=== PATIENT | male | born 1955 | race Caucasian/White ===

== ENCOUNTER 2021-03-26 14:22 | Inpatient (IN) | payer OTHER ==
[~2021-03-26] VITALS: Ht 182.9 cm; Wt 102.5 kg
[2021-03-26 15:07] LABS: PCO2 Arterial 29.2 mmHg (35-45); pH Blood Arterial 7.47 (7.35-7.45)
[2021-03-26 15:22] LABS: BASOPHILS ABSOLUTE AUTO 0.08 K/mm3 (0.00-0.23); BASOPHILS PERCENT AUTO 1 % (0-2); EOSINOPHILS ABSOLUTE AUTO 0.02 K/mm3 (0.00-0.68); EOSINOPHILS PERCENT AUTO 0 % (0-6); Hematocrit 44.1 % (37.0-53.0); Hemoglobin 15.5 g/dL (13.5-17.5); IMMATURE GRAN ABSOLUTE AUTO 0.61 K/mm3 (0.00-0.10); IMMATURE GRAN PERCENT AUTO 4 % (0-1); LYMPHOCYTES ABSOLUTE AUTO 0.84 K/mm3 (0.84-5.20); LYMPHOCYTES PERCENT AUTO 6 % (21-46); MONOCYTES PERCENT AUTO 6 % (4-13); Mean Corpuscular HGB 33.3 pg (26.0-34.0); Mean Corpuscular HGB Conc 35.1 g/dL (31.5-36.5); Mean Corpuscular Volume 95 fL (80-100); NEUTROPHILS ABSOLUTE AUTO 11.53 K/mm3 (1.96-9.15); NEUTROPHILS PERCENT AUTO 83 % (41-73); NRBC ABSOLUTE 0.06 K/mm3 (0.00-0.02); NRBC Auto 0.4 /100 WBC (0.0-0.2); Platelet Count 366 K/mm3 (150-400); RDW Coefficient Variation 14.1 % (11.7-14.2); RDW Standard Deviation 49.3 fL (35.1-46.3); Red Blood Cell Count 4.66 M/mm3 (4.30-5.90); White Blood Cell Count 13.98 K/mm3 (4.00-11.30)
[2021-03-26 15:39] LABS: Influenza A, PCR NEGATIVE (NEGATIVE); Influenza B, PCR NEGATIVE (NEGATIVE); Resp Syncytial Virus, PCR NEGATIVE (NEGATIVE)
[2021-03-26 15:39] LABS: Alanine Aminotransfer (ALT/SGP 35 U/L (12-78); Albumin, Blood 2.7 g/dL (3.4-5.0); Albumin/Globulin Ratio 0.7 (0.8-1.8); Alk Phos 126 U/L (50-136); Anion Gap 12 mmol/L (6-16); Aspartate Aminotrans (AST/SGOT 72 U/L (12-37); Blood Urea Nitrogen 25 mg/dL (8-24); Bun/Creatinine Ratio 26.5 (12.0-20.0); CO2, Blood 21 mmol/L (21-32); Calcium, Blood 8.7 mg/dL (8.5-10.1); Chloride, Blood 102 mmol/L (98-108); Creatinine, Blood 0.94 mg/dL (0.60-1.20); Globulin, Blood 3.8 g/dL (2.2-4.0); Glomerular Filtration Rate >60 (60-); Glucose, Blood 115 mg/dL (70-99); Potassium, Blood 4.7 mmol/L (3.5-5.5); Sodium, Blood 135 mmol/L (136-145); Total Protein, Blood 6.5 g/dL (6.4-8.2)
[2021-03-26 15:42] LABS: International Normalized Ratio 0.98; Prothrombin Time Results 10.3 Sec (9.7-11.5)
[2021-03-26 15:42] LABS: SARS-Cov-2 (COVID-19) PCR, MMC POSITIVE (NEGATIVE)
[2021-03-27 04:06] LABS: Source, Urine Catheter
[2021-03-27 04:16] LABS: Bilirubin, Urine Neg (Neg); Blood, Urine 1+ (Neg); Glucose Qualitative, Urine Neg (Neg); Ketones, Urine 3+ (Neg); Leukocyte Esterase, Urine 1+ (Neg); Nitrite, Urine Pos (Neg); Protein, Urine 2+ (Neg); Specific Gravity, Urine 1.015 (1.003-1.022); Urobilinogen, Urine NORM (Normal)
[2021-03-27 04:28] LABS: Hematocrit 45.4 % (37.0-53.0); Hemoglobin 15.8 g/dL (13.5-17.5); Mean Corpuscular HGB 33.1 pg (26.0-34.0); Mean Corpuscular HGB Conc 34.8 g/dL (31.5-36.5); Mean Corpuscular Volume 95 fL (80-100); Platelet Count 333 K/mm3 (150-400); RDW Coefficient Variation 13.9 % (11.7-14.2); RDW Standard Deviation 49.1 fL (35.1-46.3); Red Blood Cell Count 4.77 M/mm3 (4.30-5.90); White Blood Cell Count 9.78 K/mm3 (4.00-11.30)
[2021-03-27 04:31] LABS: Appearance, Urine Clear (Clear); Color, Urine Yellow (P-Yellow)
[2021-03-27 04:32] LABS: Bacteria Mod /hpf; Red Blood Cells, Urine Rare /hpf (0-2); Squamous Epithelial Cells Not Seen /hpf (Few)
[2021-03-27 04:53] LABS: Alanine Aminotransfer (ALT/SGP 34 U/L (12-78); Albumin, Blood 2.6 g/dL (3.4-5.0); Albumin/Globulin Ratio 0.7 (0.8-1.8); Alk Phos 129 U/L (50-136); Anion Gap 11 mmol/L (6-16); Aspartate Aminotrans (AST/SGOT 48 U/L (12-37); Bilirubin, Total 0.7 mg/dL (0.1-1.0); Blood Urea Nitrogen 25 mg/dL (8-24); CO2, Blood 24 mmol/L (21-32); Calcium, Blood 8.5 mg/dL (8.5-10.1); Chloride, Blood 103 mmol/L (98-108); Creatinine, Blood 0.96 mg/dL (0.60-1.20); Globulin, Blood 3.8 g/dL (2.2-4.0); Glomerular Filtration Rate >60 (60-); Glucose, Blood 143 mg/dL (70-99); Potassium, Blood 3.7 mmol/L (3.5-5.5); Sodium, Blood 138 mmol/L (136-145); Total Protein, Blood 6.4 g/dL (6.4-8.2)
[2021-03-27 05:45] LABS: BAND PERCENT MAN 10 % (0-8); BASOPHILS PERCENT MAN 0 % (0-2); EOSINOPHILS PERCENT MAN 0 % (0-6); LYMPHOCYTES ABSOLUTE MAN 0.39 K/mm3 (0.84-5.20); LYMPHOCYTES PERCENT MAN 4 % (21-46); METAMYELOCYTE ABSOLUTE MAN 0.09 K/mm3 (0.00-0.00); METAMYELOCYTE PERCENT MAN 1 % (0-0); MONOCYTES ABSOLUTE MAN 0.09 K/mm3 (0.16-1.47); MONOCYTES PERCENT MAN 1 % (4-13); MYELOCYTE ABSOLUTE MAN 0.09 K/mm3 (0.00-0.00); MYELOCYTE PERCENT MAN 1 % (0-0); NEUTROPHILS ABSOLUTE MAN 9.09 K/mm3 (1.96-9.15); SEG NEUTROPHILS PERCENT MAN 83 % (41-73); TOTAL CELLS COUNTED 100
--- NOTE | 2021-03-27 17:44 | NUR ---
SHIFT SUMMARY PT HAS BEEN RESTING IN BED. WHEN ENCOURAGED TO PRONE, PT WOULD PUT OFF STATING "IF I TAKE A NAP, I WILL DO IT THEN." PT HAS MAINTAINED SPO2 >90% ON CURRENT SETTINGS. PT DID NOT APPEAR TO BE SOB DURING ANY INTERACTION. VSS, NO C/O PAIN/DISCOMFORT. NO ACUTE CHANGES TO CURRENT CONDITION.
[2021-03-28 03:39] LABS: Hematocrit 43.5 % (37.0-53.0); Mean Corpuscular HGB 32.9 pg (26.0-34.0); Mean Corpuscular HGB Conc 34.5 g/dL (31.5-36.5); Mean Corpuscular Volume 95 fL (80-100); Mean Platelet Volume 8.6 fL (9.1-12.4); Platelet Count 417 K/mm3 (150-400); RDW Coefficient Variation 14.2 % (11.7-14.2); RDW Standard Deviation 49.5 fL (35.1-46.3); Red Blood Cell Count 4.56 M/mm3 (4.30-5.90); White Blood Cell Count 22.01 K/mm3 (4.00-11.30)
[2021-03-28 04:05] LABS: Alanine Aminotransfer (ALT/SGP 33 U/L (12-78); Albumin, Blood 2.4 g/dL (3.4-5.0); Albumin/Globulin Ratio 0.7 (0.8-1.8); Alk Phos 108 U/L (50-136); Anion Gap 8 mmol/L (6-16); Aspartate Aminotrans (AST/SGOT 32 U/L (12-37); Bilirubin, Total 0.5 mg/dL (0.1-1.0); Blood Urea Nitrogen 31 mg/dL (8-24); Bun/Creatinine Ratio 33.1 (12.0-20.0); CO2, Blood 25 mmol/L (21-32); Calcium, Blood 8.7 mg/dL (8.5-10.1); Chloride, Blood 105 mmol/L (98-108); Creatinine, Blood 0.94 mg/dL (0.60-1.20); Ferritin, Serum 986 ng/mL (26-388); Globulin, Blood 3.5 g/dL (2.2-4.0); Glomerular Filtration Rate >60 (60-); Glucose, Blood 167 mg/dL (70-99); Potassium, Blood 3.8 mmol/L (3.5-5.5); Sodium, Blood 138 mmol/L (136-145); Total Protein, Blood 5.9 g/dL (6.4-8.2)
--- NOTE | 2021-03-28 05:23 | NUR ---
SHIFT SUMMARY PT ALERT AND ORIENTED X3. HR SR FHB PAC 80'S, BP STABLE. ON 55L AIRVO 70% FIO2, MAINTAINING SATS OVER 93%. PT ENCOURAGED TO PRONE. ASLEEP ON BACK MOST OF NIGHT AND SOME ON SIDE. OCCASIONAL PRODUCTIVE COUGH. VOIDING INDEPENDENTLY W/ URINAL. X1 SBA TO BEDSIDE COMMODE. LIQUIDY STOOLS. IN BEED SLEEPING WITH CALL ALARM AT SIDE. WILL CONTINUE TO MONITOR UNTIL REPORT GIVEN
--- NOTE | 2021-03-28 18:21 | NUR ---
SHIFT SUMMARY PT HAS BEEN UP INDEPENDENTLY IN ROOM. PT WAS EDUCATED ON IMPORTANCE OF REPOSITIONING AND PRONING. PT HAS MADE NO C/O. PT IS CURRENTLY RESTING IN BED. ALL VITAL SIGNS STABLE, NO ACUTE CHANGES TO CURRENT CONDITION.
--- NOTE | 2021-03-29 05:00 | NUR ---
SHIFT SUMMARY PT ALERT AND ORIENTED. SLEEPING THROUGHOUT MOST OF NIGHT. ENCOURAGED TO PRONE BUT MOSTLY SLEEPS ON SIDE. C/O 5/10 BACK PAIN TO START SHIFT. PAIN RELIEVED PER EMAR. VOIDING INDEPENDENTLY WITH BEDSIDE URINAL. BP STABLE, HR 80'S SR FHB PAC. ON 50L AIRVO 45% FIO2 MAINTAINING SATS OVER 93%. MENTATION IMPROVED FROM PREVIOUS EVENINGS. IN BED SLEEPING WITH CALL ALARM AT SIDE.
--- NOTE | 2021-03-29 12:55 | NUR ---
PATIENT ALERT AND ORIENTED X3-4. NEURO WNL. DENIES NUMBNESS/TINGLING. PERRLA. ABLE TO MOVE ALL EXTREMITIES. UP TO BSC AND CHAIR WITH 1 PERSON ASSIST. ON AIRVO AT 50L AND 40% FIO2 SATING LOW-MID 90'S. OCCASIONAL COUGH, LUNGS SOUNDING DIMINISHED. DESATS WITH ACTIVITY. ON TELE SHOWING SINUS RHYTHM WITH HR 70-80'S. DENIES CHEST PAIN/PRESSURE. VITAL SIGNS STABLE. USING BSC AND URINAL. URINE CLEAR/CAROLINE. DENIES ABDOMINAL PAIN/NAUSEA. COMPLAINS OF BACK PAIN. RELIEVED WITH TYLENOL AND REPOSITIOING. EATING WELL AND DRINKING WATER. TAKES PILLS WHOLE. CALL LIGHT IN REACH. DENIES NEEDS AT THIS TIME.
--- NOTE | 2021-03-29 17:40 | NUR ---
SHIFT SUMMARY: PATIENT REMAINS ALERT AND ORIENTED X4. NEURO WNL. DENIES NUMBNESS/TINGLING. REMAINS ON AIRVO 50L AND 40% FIO2 SATING LOW 90'S. TELE REMAINS SINUS RHYTHM WITH HR 80'S. DENIES CHEST PAIN/PRESSURE. VITAL SIGNS STABLE. UP TO BSC WITH 1 PERSON ASSIST. UP TO CHAIR FOR MEALS. PATIENT ENCOURAGED TO PRONE AND LAY ON SIDE. USING URINAL AT BEDSIDE. COMPLAINED OF BACK PAIN THIS SHIFT, MEDICATED X2 WITH TYLENOL PER EMAR WITH GOOD RELIEF. EATING WELL. DRINKING LOTS OF WATER. ANTIBIOTIC INFUSING. CALL LIGHT IN REACH. WILL CONTINUE TO MONITOR AND REPORT OFF TO ONCOMING RN.
--- NOTE | 2021-03-30 06:07 | NUR ---
SHIFT SUMMARY PT RESTED WELL THROUGH NIGHT. ALERT AND ORIENTED, ABLE TO MAKE NEEDS KNOWN, COOPERATIVE WITH PLAN OF CARE. SATS >90% ON 6LNC HIFLOW, BUT DID BUMP UP TO 8LNC AT 0500. MAY BE ABLE TO TITRATE BACK DOWN ONCE AWAKE. TELE READS NSR, NO SIGNS OF CP OR CARDIAC EVENTS. VOIDS TO URINAL, GOOD OUTPUT. C/O GENERALIZED PAIN FROM SLEEPING IN HOSPITAL BED, AND HEADACHE AT TIMES - SEE EMAR. ASKS QUESTIONS ABOUT PLAN OF CARE AND IS ENGAGED IN HOW TO GET BETTER SOONER SO HE CAN GO HOME - SEEMS MOTIVATED. VSS. CALL LIGHT WITHIN REACH, BED IN LOWEST POSITION. WILL CONTINUE TO MONITOR.
--- NOTE | 2021-03-30 08:30 | NUR ---
INITIAL ASSESSMENT: Patient is alseep on his left side, easily awakens with assessment. He reports minimal pain in his lower back. HRR. LS dim in the bases, biox wnl on 8l via high flow NC. bt+. VSS. Patient is asking to be able to sleep at this time. Breakfast tray left on bedside table, call light in reach will continue to monitor.
--- NOTE | 2021-03-30 14:09 | NUR ---
PT WAS DOWNGRADED TO MEDICAL STATUS NO TELEMETRY. REPORT GIVEN TO AUDREY. PATIENT WILL BE TRANSFERRED TO ROOM 302 ONCE HE IS DONE WITH HIS SHOWER.
--- NOTE | 2021-03-30 14:20 | NUR ---
[facility] A/OX4, PLEASANT AND COOPERATIVE. THE PT WAS ORIENTED TO THE ROOM LAYOUT AND CALL SYSTEM. PT IS ON HIGH CHUN O2 @ 6L/MIN
--- NOTE | 2021-03-30 16:28 | NUR ---
PT IS A/OX4, PLEASANT AND COOPERATIVE. THE PT IS UP WITH MINIMAL ASSIST . THE PT WAS ON 6L/MIN O2 VIA HIGH CHUN ON ARRIVAL TO THE MEDICAL FLOOR, CURRENTLY THE PTS O2 HAS BEEN TITRATED TO 2L/MIN WHILE PT IS AT REST, O2 SAT'S GREATER THAN 90%. THE PT DENIES PAIN AND NAUSEA. CALL LIGHT IN REACH. WILL CONTINUE TO MONITOR AND ASSESS FOR CHANGES
--- NOTE | 2021-03-31 05:59 | NUR ---
PT with covid 19 hypoxia continues to require up to 6 l high flow to keep sats at 90%. Has bioxx & needs 4 to 6 l . Shallow breathing. Flat affect, medicated x 1 with tylenol for low back pain with hgelpful effect. up to BSC indep
[2021-03-31 06:01] LABS: Hematocrit 42.8 % (37.0-53.0); Hemoglobin 14.8 g/dL (13.5-17.5); Mean Corpuscular HGB 33.4 pg (26.0-34.0); Mean Corpuscular HGB Conc 34.6 g/dL (31.5-36.5); Mean Corpuscular Volume 97 fL (80-100); Mean Platelet Volume 9.5 fL (9.1-12.4); Platelet Count 425 K/mm3 (150-400); RDW Coefficient Variation 13.8 % (11.7-14.2); RDW Standard Deviation 49.4 fL (35.1-46.3); Red Blood Cell Count 4.43 M/mm3 (4.30-5.90); White Blood Cell Count 26.79 K/mm3 (4.00-11.30)
[2021-03-31 07:22] LABS: Alanine Aminotransfer (ALT/SGP 69 U/L (12-78); Albumin, Blood 2.3 g/dL (3.4-5.0); Albumin/Globulin Ratio 0.8 (0.8-1.8); Alk Phos 99 U/L (50-136); Anion Gap 11 mmol/L (6-16); Aspartate Aminotrans (AST/SGOT 28 U/L (12-37); Bilirubin, Total 0.6 mg/dL (0.1-1.0); Blood Urea Nitrogen 30 mg/dL (8-24); Bun/Creatinine Ratio 34.7 (12.0-20.0); CO2, Blood 25 mmol/L (21-32); Calcium, Blood 8.2 mg/dL (8.5-10.1); Chloride, Blood 103 mmol/L (98-108); Creatinine, Blood 0.87 mg/dL (0.60-1.20); Globulin, Blood 2.8 g/dL (2.2-4.0); Glomerular Filtration Rate >60 (60-); Glucose, Blood 152 mg/dL (70-99); Magnesium, Blood 2.8 mg/dL (1.6-2.4); Potassium, Blood 4.8 mmol/L (3.5-5.5); Sodium, Blood 139 mmol/L (136-145); Total Protein, Blood 5.1 g/dL (6.4-8.2)
[2021-03-31 15:17] LABS: Hematocrit 41.7 % (37.0-53.0); Hemoglobin 14.4 g/dL (13.5-17.5)
--- NOTE | 2021-03-31 16:26 | NUR ---
PT IS A/OX3, PLEASQANT AND COOPERATIVE, PT SEEMS TO BE SLOW TO RESPOND AT TIMES. THE PT APPEARS TO BE BREATHING EASILY AT REST ON 3L/MIN O2 SAT'S 90% DURING THE DAY, HOWEVER, DESATS'S WITH MINIMAL ACTIVITY. OCCASIONALY THE PT HAS TAKEN OFF HIS O2 AND HAS HAS BEEN IN THE 84 -87 5 RANGE. PT NEED TO BE REMINDED TO REPLACE HIS OXYGEN. THE PT WAS UP TO THE BSC TODAY FOR A BM AND HAD A LARGE SOFT BLOODY OREDEOUS STOOL. A CALL WAS MADE TO DR. LORENZANA NEW ORDERS WERE GIVEN TO MONITOR H&H AND THE PTS STOOLS. LOVENOX WAS STOPPED. CALL LIGHT IN REACH WILL CONTINUE TO MONIOTR AND ASSESS FOR CHANGES
--- NOTE | 2021-03-31 18:17 | NUR ---
O2 PT CURRENTLY MAINTAING O2 SAT 93% ON 4L/MIN O2, PT INSTRUCTED AND WORKING WITH THE INCENTIVE SPIROMETER
[2021-03-31] MEDS ORDERED: NEURONTIN300 MG PO (19:59)
[2021-03-31] MEDS ORDERED: DULOXETINE HCL60 M1 PO (19:59)
[2021-03-31] MEDS ORDERED: HYDROCODONE-AC1 EA15 PO (20:00)
[2021-03-31] MEDS ORDERED: PROPRANOLOL HC120 MG PO (20:01)
[2021-03-31] MEDS ORDERED: AMLODIPINE BESY10 MG PO (20:01)
[2021-03-31] MEDS ORDERED: OXYC5 PO (20:04)
--- NOTE | 2021-04-01 04:14 | NUR ---
PATIENT HAS BEEN PLEASANT AND COOPERATIVE WITH STAFF AND THE CARE PROVIDED. PATIENT DENIES DYSPNEA; HE HAS BEEN ON 4L O2 NC ALL NIGHT AND SLOWLY HIS O2 SATS INCRESED TO THE 97%. HIS O2 WAS JUST TURNED DOWN TO 2L AND HE IS MAINTAINING HIS SATS PRETTY WELL RIGHT ABOUT 93%. PATIENT STATES HE HAS NOT HAD ANY ADDITIONAL BLOODY BM's DURING THE NIGHT. BP ELEVATED BUT ALL OTHER VITALS HAVE BEEN STABLE. THERE ARE NO OTHER ACUTE CHANGES TO REPORT OF AT THIS TIME. CALL LIGHT WITHIN REACH.
[2021-04-01 05:17] LABS: Hematocrit 39.9 % (37.0-53.0); Hemoglobin 13.7 g/dL (13.5-17.5); Mean Corpuscular HGB 33.1 pg (26.0-34.0); Mean Corpuscular HGB Conc 34.3 g/dL (31.5-36.5); Mean Corpuscular Volume 96 fL (80-100); Mean Platelet Volume 9.5 fL (9.1-12.4); Platelet Count 383 K/mm3 (150-400); RDW Coefficient Variation 13.6 % (11.7-14.2); RDW Standard Deviation 48.3 fL (35.1-46.3); Red Blood Cell Count 4.14 M/mm3 (4.30-5.90)
[2021-04-01 05:32] LABS: Anion Gap 6 mmol/L (6-16); Blood Urea Nitrogen 32 mg/dL (8-24); Bun/Creatinine Ratio 41.7 (12.0-20.0); CO2, Blood 26 mmol/L (21-32); Calcium, Blood 7.9 mg/dL (8.5-10.1); Chloride, Blood 107 mmol/L (98-108); Creatinine, Blood 0.77 mg/dL (0.60-1.20); Glomerular Filtration Rate >60 (60-); Glucose, Blood 166 mg/dL (70-99); Potassium, Blood 4.8 mmol/L (3.5-5.5); Sodium, Blood 139 mmol/L (136-145)
[2021-04-01] MEDS ORDERED: GUAI600T33 PO (14:22)
[2021-04-01] MEDS ORDERED: VITAMIN D5000 UNIT PO (14:25)
[2021-04-01] MEDS ORDERED: Deltasone 10 mg10 MG PO (14:25)
--- NOTE | 2021-04-01 15:11 | NUR ---
DISCHARGE PATIENT TRANSPORTED VIA WHEELCHAIR TO PRIVATE VEHICLE. DISCHARGE PACKET EXPLAINED TO PATIENT. PATIENT STATED UNDERSTANDING. PACKET SENT WITH PATIENT. IV REMOVED WITHOUT DIFFICULTY. BELONGINGS SENT WITH PATIENT. MEDICATIONS FAXED TO PERFERRED PHARMACY. APPOINTMENT WITH PCP SCHEDULED. ANIRUDH DELIVERED OXYGEN BEFORE DISCHARGE.
== END 2021-04-01 15:06 | disposition home or self-care (01) | DRG 177 ==
LOC: ER 14:22 → ERHOLD 17:35 → PCU 17:35 → MEDS 03-30 14:25
PROVIDERS: Internal Medicine; Physician Assistant; ADMIT Internal Medicine
PROC: 8E0ZXY6 Isolation (ICD-10-PCS; principal; 2021-03-26)
PROC: XW033E5 Introduction of Remdesivir Anti-infective into Peripheral Vein, Percutaneous Approach, New Technology Group 5 (ICD-10-PCS; 2021-03-26)
PROC: 3E0333Z Introduction of Anti-inflammatory into Peripheral Vein, Percutaneous Approach (ICD-10-PCS; 2021-03-26)
DX: U07.1 COVID-19 (principal); J96.01 Acute respiratory failure with hypoxia; J12.82 Pneumonia due to coronavirus disease 2019; G93.1 Anoxic brain damage, not elsewhere classified; N39.0 Urinary tract infection, site not specified; K62.5 Hemorrhage of anus and rectum; Z66 Do not resuscitate; T38.0X5A Adverse effect of glucocorticoids and synthetic analogues, initial encounter
CPT/HCPCS: 0241U; 36415; 36600; 71045; 80048; 80053; 81001; 82728; 82803; 83605; 83615; 83735; 84145; 85014; 85018; 85025; 85027; 85379; 85610; 85730; 86140; 87040; 87086; 93005; 93010; 94760; 94761; 94762; 96365; 99285-25; A9270; J0696; J1100; J1650; J2930; J7050; J7512

== ENCOUNTER 2022-12-16 13:32 | Emergency (ER) | payer OTHER ==
[~2022-12-16] VITALS: Ht 182.9 cm; Wt 88.5 kg
[~2022-12-16 13:32] MED LIST: AMLODIPINE BESY10 MG PO; DULOXETINE HCL60 M1 PO; Deltasone 10 mg10 MG PO; GUAI600T33 PO; HYDROCODONE-AC1 EA15 PO; NEURONTIN300 MG PO; OXYC5 PO; PROPRANOLOL HC120 MG PO; VITAMIN D5000 UNIT PO
[2022-12-16 15:00] VITALS: BP 118/77
[2022-12-16 16:17] LABS: BASOPHILS ABSOLUTE AUTO 0.06 K/mm3 (0.00-0.23); BASOPHILS PERCENT AUTO 1 % (0-2); EOSINOPHILS ABSOLUTE AUTO 0.14 K/mm3 (0.00-0.68); EOSINOPHILS PERCENT AUTO 1 % (0-6); Hematocrit 51.7 % (37.0-53.0); Hemoglobin 17.1 g/dL (13.5-17.5); IMMATURE GRAN ABSOLUTE AUTO 0.03 K/mm3 (0.00-0.10); IMMATURE GRAN PERCENT AUTO 0 % (0-1); LYMPHOCYTES ABSOLUTE AUTO 1.35 K/mm3 (0.84-5.20); LYMPHOCYTES PERCENT AUTO 13 % (21-46); MONOCYTES ABSOLUTE AUTO 0.69 K/mm3 (0.16-1.47); MONOCYTES PERCENT AUTO 7 % (4-13); Mean Corpuscular HGB 31.5 pg (26.0-34.0); Mean Corpuscular HGB Conc 33.1 g/dL (31.5-36.5); Mean Corpuscular Volume 95 fL (80-100); Mean Platelet Volume 9.7 fL (9.1-12.4); NEUTROPHILS ABSOLUTE AUTO 7.81 K/mm3 (1.96-9.15); NEUTROPHILS PERCENT AUTO 78 % (41-73); Platelet Count 263 K/mm3 (150-400); RDW Coefficient Variation 13.2 % (11.7-14.2); RDW Standard Deviation 46.1 fL (35.1-46.3); Red Blood Cell Count 5.43 M/mm3 (4.30-5.90); White Blood Cell Count 10.08 K/mm3 (4.00-11.30)
[2022-12-16 16:42] LABS: Albumin, Blood 4.2 g/dL (3.4-5.0); Albumin/Globulin Ratio 1.4 (0.8-1.8); Bilirubin, Total 1.1 mg/dL (0.1-1.0); Bun/Creatinine Ratio 14.9 (12.0-20.0); Calcium, Blood 9.6 mg/dL (8.5-10.1); Creatinine, Blood 1.21 mg/dL (0.60-1.20); Globulin, Blood 2.9 g/dL (2.2-4.0); Potassium, Blood 4.6 mmol/L (3.5-5.5); Total Protein, Blood 7.1 g/dL (6.4-8.2)
== END 2022-12-16 17:14 | disposition home or self-care (01) ==
LOC: ER 13:32
PROVIDERS: Emergency Medicine
DX: R55 Syncope and collapse (principal); F03.90 Unspecified dementia, unspecified severity, without behavioral disturbance, psychotic disturbance, mood disturbance, and anxiety; Z79.899 Other long term (current) drug therapy; Z79.52 Long term (current) use of systemic steroids
CPT/HCPCS: 80053; 85025; 93005; 93010; 99284-25